=== PATIENT | female | born 2000 | race Hispanic/Latino ===

== ENCOUNTER 2024-05-05 07:09 | Day surgery (SDC) | payer MEDICAID ==
[2024-05-04 15:41] LABS: BASOPHILS # (AUTO) 0.06 K/uL (0.00-0.20); BASOPHILS % (AUTO) 0.8 % (0.0-5.0); EOSINOPHILS # (AUTO) 0.22 K/uL (0.00-0.70); EOSINOPHILS % (AUTO) 2.8 % (0.0-8.0); HEMATOCRIT 36.9 % (36-48); IMMATURE GRANULOCYTE ABSOLUTE 0.04 K/uL (0-1); LYMPHOCYTES # (AUTO) 2.7 K/uL (1.0-4.8); LYMPHOCYTES % (AUTO) 34.3 % (21.0-51.0); MEAN CORPUSCULAR HEMOGLOBIN 25.7 pg (27.0-33.0); MEAN CORPUSCULAR HGB CONC 31.2 g/dL (32.0-36.0); MEAN CORPUSCULAR VOLUME 82.4 fL (79-99); MONOCYTES # (AUTO) 0.5 K/uL (0.1-1.0); MONOCYTES % (AUTO) 6.7 % (3.0-13.0); NEUTROPHILS # (AUTO) 4.3 K/uL (1.8-7.7); NEUTROPHILS % (AUTO) 54.9 % (40.0-77.0); PLATELET COUNT (AUTO) 313 K/uL (130-400); RED BLOOD CELL COUNT(AUTO) 4.48 MIL/uL (4.00-5.50); RED CELL DISTRIBUTION WIDTH 13.9 % (11.0-15.5); WHITE BLOOD COUNT (AUTO) 7.8 K/uL (4.8-10.8)
[2024-05-04 15:42] VITALS: BP 113/64; PULSE 80; RESP 18; TEMP 98
[2024-05-04 15:56] LABS: INR 0.94 (0.85-1.15); PROTHROMBIN TIME 10.6 SEC (9.6-11.6)
[2024-05-04 15:57] LABS: PARTIAL THROMBOPLASTIN TIME 33.8 SEC (26.3-35.5)
[2024-05-04 16:26] LABS: CREATININE 0.8 mg/dL (0.5-1.0); POTASSIUM 4.1 mmol/L (3.5-5.1)
[2024-05-05] VITALS (18 sets, daily range): BP systolic 128–158; BP diastolic 83–98; PULSE 65–92; RESP 13–21; TEMP 97.1–98.6
[~2024-05-05] VITALS: Ht 160 cm; Wt 77.1 kg
[~2024-05-05 07:09] MED LIST: SERT-438 PO
[2024-05-05] MEDS ORDERED: BUPIvacaine/PF 0.25% 30ML VIAL IJ ONE (07:49)
[2024-05-05] MEDS: LACTATED RINGERS 1000ML 1,000 ML IV ONE (08:00)
[2024-05-05] MEDS: ceFAZolin SODIUM 2 GM VIAL ONE (08:00)
[2024-05-05] MEDS ORDERED: ROPivacaine 0.5% 5MG/ML 30ML ONE ×2 (08:26→08:33)
[2024-05-05] MEDS ORDERED: dexaMETHasone SOD PHOSPHATE 10MG/ML 1ML VIAL ONE (08:29)
[2024-05-05] MEDS ORDERED: FENTanyl CITRate PF 50 MCG/1 ML 2ML VIAL ONE ×2 (08:29→09:16)
[2024-05-05] MEDS ORDERED: GLYCOPYRROLATE 0.2 MG/ML 5 ML VIAL ONE (08:29)
[2024-05-05] MEDS ORDERED: rocuRONium bROMide 10MG/1ML 5ML VL ONE (08:29)
[2024-05-05] MEDS ORDERED: proPOFol 10 MG/ML 20ML VIAL IV ONE (08:29)
[2024-05-05] MEDS ORDERED: NEOSTIGMINE METHYLSULFATE 1MG/ML IV ONE (08:29)
[2024-05-05] MEDS ORDERED: LIDOCAINE PF 100MG/5ML (2%) SYRINGE 5ML ONE (08:29)
[2024-05-05] MEDS ORDERED: SUCCINYLCHOLINE CHLORIDE 20 MG/ML 10 ML VIAL ONE (08:29)
[2024-05-05] MEDS ORDERED: ondanSETRON 4MG INJ ONE (08:29)
[2024-05-05] MEDS ORDERED: MIDAZOLAM HCL 1 MG/ML 2ML VIAL ONE (08:30)
--- NOTE | 2024-05-05 10:10 | OP ---
Operative Note: DATE OF PROCEDURE: 05/05/24 SURGEON: VERONICA ZAMBRANO MD SKULL GRINDER: [] ANESTHESIA: [] General ANESTHESIOLOGIST/COSTUME MAKER: [] PREOPERATIVE DIAGNOSIS: [] Cholecystitis Umbilical hernia POSTOPERATIVE DIAGNOSIS: [] Same SYNOPSIS: [] PROCEDURE: [] Laparoscopic cholecystectomy Open umbilical hernia repair ESTIMATED BLOOD LOSS: [] Minimal INDICATIONS: []With the patient prepped in the usual fashion a supraumbilical incision was additionally directed to meet with placement of the trocar and abdomen insufflated. Three 5 mm trochars were placed in the right upper quadrant under direct vision. The gallbladder was exposed adhesions were taken down and I dissected triangle of [place]. The cystic duct was clearly identified was triple clipped and divided and the cystic artery was double clipped and divided. I took the gallbladder from the liver using cautery dissection and after removed from the liver bed I placed an in a bag. I cauterized the liver bed And after adequate hemostasis and irrigation I removed all the trochars under direct vision and the gallbladder was removed from the supraumbilical incision. I extended the supraumbilical incision and I was able to dissect the fundus small umbilical hernia. The hernia sac was opened and the contents removed. The defect of the hernia was about 2 cm. I proceeded to close the hernia with a 0 Prolene interrupted in no mesh was used. The subcutaneous tissue was closed with a Vicryl. And the skin was closed with 4-0 Monocryl and Steri-Strips Patient was stable at the end of the procedure DESCRIPTION OF PROCEDURE: [] VERONICA ZAMBRANO MD May 05, 2024 10:10
[2024-05-05] MEDS: hydroMORPHone 1 MG INJ ONE (10:45)
[2024-05-05] MEDS: ondanSETRON 4MG INJ ONE (11:00)
[2024-05-05] MEDS: metoCLOPRAmide 10 MG/2 ML VIAL ONE (11:10)
[2024-05-05] MEDS: PROMETHAZINE HCL 25 MG/ML 1ML AMPULE IM ONE (11:18)
== END 2024-05-05 12:10 | disposition home or self-care (01) ==
LOC: DAH 07:09
PROVIDERS: ATTEND Surgery
DX: K42.9 Umbilical hernia without obstruction or gangrene (principal); K80.10 Calculus of gallbladder with chronic cholecystitis without obstruction; E66.9 Obesity, unspecified; F32.A Depression, unspecified; Z98.890 Other specified postprocedural states; Z68.30 Body mass index [BMI] 30.0-30.9, adult; Z79.01 Long term (current) use of anticoagulants; Z79.899 Other long term (current) drug therapy
CPT/HCPCS: 80048; 84703; 85025; 85610; 85730; 36415; 47562; 64999; 49591; 88302; 88304; A6260; A4663; J7030; J7120; J3010 ×2; J1171; J1100; J0330; J2550; J3490 ×2; J2003; J2250; J2704; J2405 ×2; J2710; J2765; J2795 ×2; J0690; C1769 ×3; A4649; A4215 ×2; A4223; A4222; A4221; A4600; J0665